=== PATIENT | female | born 1955 | race African-American/Black ===

== ENCOUNTER 2016-09-21 06:01 | Inpatient (IN) | payer MEDICAID, OTHER ==
[~2016-09-21] VITALS: Ht 147.3 cm; Wt 61.1 kg
[2016-09-21] MEDS: DiphenhydrAMINE HCL 50 MG/ML VIAL IM ONE ×2 (06:32→10:01)
[2016-09-21] MEDS: LORazepam 2 MG/ML VIAL IM ONE ×2 (06:32→10:01)
[2016-09-21] MEDS: HALOPERIDOL LACTATE 5 MG/ML VIAL IM ONE ×2 (06:32→10:01)
[2016-09-21 06:42] LABS: BASOPHILS % (AUTO) 0.6 % (0.0-2.0); EOSINOPHILS % (AUTO) 2.9 % (1.0-6.0); HEMATOCRIT 39.7 % (36-46); HEMOGLOBIN 12.4 g/dL (12.0-16.0); LYMPHOCYTES # (AUTO) 4.2 K/uL (1.0-4.8); LYMPHOCYTES % (AUTO) 31.5 % (22.0-44.0); MEAN CORPUSCULAR HEMOGLOBIN 28.6 pg (26.0-34.0); MEAN CORPUSCULAR HGB CONC 31.2 G/dL (31.0-37.0); MEAN CORPUSCULAR VOLUME 92 fL (80-100); MONOCYTES # (AUTO) 0.8 K/uL (0.1-1.0); MONOCYTES % (AUTO) 6.1 % (2.0-9.0); NEUTROPHILS # (AUTO) 7.9 K/uL (1.8-7.7); NEUTROPHILS % (AUTO) 58.9 % (40.0-70.0); PLATELET COUNT (AUTO) 337 K/uL (150-450); RED BLOOD CELL COUNT(AUTO) 4.34 MIL/uL (4.00-5.20); RED CELL DISTRIBUTION WIDTH 14.6 % (11.5-14.5); WHITE BLOOD COUNT (AUTO) 13.4 K/uL (4.5-11.0)
[2016-09-21 06:46] LABS: ANION GAP 11 mmol/L (8-16); CALCIUM, TOTAL 9.8 mg/dL (8.8-10.5); CARBON DIOXIDE 25 mmol/L (22-29); CHLORIDE 103 mmol/L (98-107); CREATININE 1.49 mg/dL (0.60-1.30); GLOMERULAR FILTR. RATE CALC 35 mL/min (>60); POTASSIUM 4.3 mmol/L (3.5-5.1); SODIUM SERUM 139 mmol/L (136-145); UREA NITROGEN, BLOOD 22 mg/dL (7-18)
[2016-09-21 06:52] LABS: ALANINE AMINOTRANSFERASE 19 U/L (12-78); ALBUMIN 3.9 g/dL (3.4-5.0); ASPARTATE AMINOTRANSFERASE 19 U/L (15-37); BILIRUBIN,TOTAL 0.1 mg/dL (0.1-1.0); TOTAL PROTEIN, SERUM 8.7 g/dL (6.4-8.2)
[2016-09-21] MEDS ORDERED: ZOLPIDEM TARTRATE 10 MG TABLET PO PRN (08:00)
[2016-09-21] MEDS ORDERED: LORazepam 2 MG TABLET PO PRN (08:00)
[2016-09-21] MEDS ORDERED: HALOPERIDOL 5 MG TABLET PO PRN (08:00)
[2016-09-21 10:31] LABS: GLUCOSE, URINE (UA) NEGATIVE (NEGATIVE); KETONES,URINE NEGATIVE (NEGATIVE); LEUKOCYTE ESTERASE ,URINE NEGATIVE (NEGATIVE); OCCULT BLOOD,URINE NEGATIVE (NEGATIVE); PROTEIN,URINE NEGATIVE (NEGATIVE)
[2016-09-21 10:36] LABS: ADD UA MICROSCOPIC NO; APPEARANCE,URINE CLEAR (CLEAR)
[2016-09-21 17:35] VITALS: BP 136/77
[2016-09-21] MEDS ORDERED: INFLUENZA VIRUS VACCINE QVS 2016-17 (3YR+)/PF 60 MCG/0.5 ML SYRINGE IM ONE (18:15)
[2016-09-22 04:00] VITALS: BP 138/85
[2016-09-22 08:17] VITALS: BP 139/73
[2016-09-22] MEDS: GABAPENTIN 300 MG CAPSULE PO SCH ×2 (16:47→20:34)
[2016-09-22] MEDS: TOPIRAMATE 25 MG TABLET PO SCH (17:00)
[2016-09-22] MEDS ORDERED: IBUPROFEN 400 MG TABLET PO PRN (17:00)
[2016-09-22] MEDS ORDERED: ACETAMINOPHEN 325 MG TABLET PO PRN (17:00)
[2016-09-22 19:44] VITALS: BP 137/82
[2016-09-22] MEDS: TraZODone HCL 100 MG TABLET PO SCH (20:34)
[2016-09-23 08:00] VITALS: BP 123/67
[2016-09-23] MEDS: VENLAFAXINE HCL 75 MG ER CAPSULE PO SCH (09:23)
[2016-09-23] MEDS: GABAPENTIN 300 MG CAPSULE PO SCH ×4 (09:24→20:40)
[2016-09-23] MEDS: TOPIRAMATE 25 MG TABLET PO SCH ×2 (09:24→16:52)
[2016-09-23 17:39] VITALS: BP 98/65
[2016-09-23] MEDS: TraZODone HCL 100 MG TABLET PO SCH (20:40)
[2016-09-24 08:00] VITALS: BP 145/70
[2016-09-24] MEDS: TOPIRAMATE 25 MG TABLET PO SCH ×2 (08:36→16:45)
[2016-09-24] MEDS: VENLAFAXINE HCL 75 MG ER CAPSULE PO SCH (08:36)
[2016-09-24] MEDS: GABAPENTIN 300 MG CAPSULE PO SCH ×4 (08:36→20:51)
[2016-09-24 16:47] VITALS: BP 142/68
[2016-09-24] MEDS: TraZODone HCL 100 MG TABLET PO SCH (20:51)
[2016-09-25 08:00] VITALS: BP 136/67
[2016-09-25] MEDS: GABAPENTIN 300 MG CAPSULE PO SCH ×4 (08:21→20:05)
[2016-09-25] MEDS: VENLAFAXINE HCL 75 MG ER CAPSULE PO SCH (08:21)
[2016-09-25] MEDS: TOPIRAMATE 25 MG TABLET PO SCH ×2 (08:21→16:17)
[2016-09-25 19:03] VITALS: BP 132/74
[2016-09-25] MEDS: TraZODone HCL 100 MG TABLET PO SCH (20:04)
[2016-09-26 01:15] VITALS: BP 143/73
[2016-09-26 08:07] VITALS: BP 134/84
[2016-09-26] MEDS: VENLAFAXINE HCL 75 MG ER CAPSULE PO SCH (08:25)
[2016-09-26] MEDS: GABAPENTIN 300 MG CAPSULE PO SCH ×4 (08:25→20:59)
[2016-09-26] MEDS: TOPIRAMATE 25 MG TABLET PO SCH ×2 (08:26→17:01)
[2016-09-26 16:07] VITALS: BP 117/66
[2016-09-26] MEDS: TraZODone HCL 100 MG TABLET PO SCH ×2 (20:59→21:00)
[2016-09-27 05:01] VITALS: BP 126/77
[2016-09-27 08:00] VITALS: BP 142/77
[2016-09-27] MEDS: GABAPENTIN 300 MG CAPSULE PO SCH ×2 (08:03→12:14)
[2016-09-27] MEDS: TOPIRAMATE 25 MG TABLET PO SCH (08:03)
[2016-09-27] MEDS: VENLAFAXINE HCL 75 MG ER CAPSULE PO SCH (08:03)
[2016-09-27] MEDS ORDERED: TOPI25 PO (12:48)
[2016-09-27] MEDS ORDERED: TRAZ-147 PO (12:48)
[2016-09-27] MEDS ORDERED: GABA-531 PO (12:48)
[2016-09-27] MEDS ORDERED: VENL-67 PO (12:49)
== END 2016-09-27 14:50 | disposition home or self-care (01) | DRG 750 ==
LOC: EMS 06:03 → EEVIPCON 06:03 → 3EI 16:44
PROVIDERS: ADMIT Psychiatry & Neurology Psychiatry; ATTEND Psychiatry & Neurology Psychiatry
DX: F25.9 Schizoaffective disorder, unspecified (principal); N18.3 Chronic kidney disease, stage 3 (moderate); F29 Unspecified psychosis not due to a substance or known physiological condition; D72.829 Elevated white blood cell count, unspecified; F17.210 Nicotine dependence, cigarettes, uncomplicated; Z91.19 Patient's noncompliance with other medical treatment and regimen; Z88.1 Allergy status to other antibiotic agents; Z88.0 Allergy status to penicillin; Z88.8 Allergy status to other drugs, medicaments and biological substances; Z79.899 Other long term (current) drug therapy; Z28.21 Immunization not carried out because of patient refusal
CPT/HCPCS: 96372; 99285; 99406; G0480; J1200; J1630; J2060

== ENCOUNTER 2016-10-10 15:48 | Inpatient (IN) | payer MEDICAID, OTHER ==
[~2016-10-10] VITALS: Ht 148.6 cm; Wt 59.0 kg
[~2016-10-10 15:48] MED LIST: GABA-531 PO; TOPI25 PO; TRAZ-147 PO; VENL-67 PO
[2016-10-10] MEDS ORDERED: LORazepam 2 MG TABLET PO PRN (16:45)
[2016-10-10] MEDS ORDERED: ZOLPIDEM TARTRATE 10 MG TABLET PO PRN (16:45)
[2016-10-10 17:17] LABS: BASOPHILS % (AUTO) 1.5 % (0.0-2.0); EOSINOPHILS % (AUTO) 3.4 % (1.0-6.0); HEMATOCRIT 42.4 % (36-46); HEMOGLOBIN 13.3 g/dL (12.0-16.0); LYMPHOCYTES % (AUTO) 34.2 % (22.0-44.0); MEAN CORPUSCULAR HEMOGLOBIN 28.1 pg (26.0-34.0); MEAN CORPUSCULAR HGB CONC 31.3 G/dL (31.0-37.0); MEAN CORPUSCULAR VOLUME 90 fL (80-100); MONOCYTES # (AUTO) 0.6 K/uL (0.1-1.0); MONOCYTES % (AUTO) 5.4 % (2.0-9.0); NEUTROPHILS # (AUTO) 6.5 K/uL (1.8-7.7); NEUTROPHILS % (AUTO) 55.5 % (40.0-70.0); PLATELET COUNT (AUTO) 331 K/uL (150-450); RED BLOOD CELL COUNT(AUTO) 4.72 MIL/uL (4.00-5.20); RED CELL DISTRIBUTION WIDTH 14.6 % (11.5-14.5); WHITE BLOOD COUNT (AUTO) 11.8 K/uL (4.5-11.0)
[2016-10-10 17:25] LABS: ANION GAP 14 mmol/L (8-16); CALCIUM, TOTAL 10.2 mg/dL (8.8-10.5); CARBON DIOXIDE 22 mmol/L (22-29); CHLORIDE 106 mmol/L (98-107); CREATININE 1.62 mg/dL (0.60-1.30); GLOMERULAR FILTR. RATE CALC 39 mL/min (>60); SODIUM SERUM 142 mmol/L (136-145); UREA NITROGEN, BLOOD 19 mg/dL (7-18)
[2016-10-10 17:32] LABS: ALANINE AMINOTRANSFERASE 16 U/L (12-78); ALBUMIN 3.9 g/dL (3.4-5.0); ASPARTATE AMINOTRANSFERASE 18 U/L (15-37); BILIRUBIN,TOTAL 0.3 mg/dL (0.1-1.0); TOTAL PROTEIN, SERUM 8.8 g/dL (6.4-8.2)
[2016-10-10] MEDS: HALOPERIDOL 5 MG TABLET PO PRN (18:28)
[2016-10-10 18:42] VITALS: BP 128/78
[2016-10-11 08:00] VITALS: BP 139/74
[2016-10-11] MEDS: HALOPERIDOL 5 MG TABLET PO PRN (17:39)
[2016-10-11] MEDS: TOPIRAMATE 25 MG TABLET PO SCH (17:50)
[2016-10-11] MEDS: GABAPENTIN 300 MG CAPSULE PO SCH ×2 (17:50→20:37)
[2016-10-11] MEDS: TraZODone HCL 100 MG TABLET PO SCH (20:36)
[2016-10-11] MEDS ORDERED: IBUPROFEN 400 MG TABLET PO PRN (22:00)
[2016-10-11] MEDS ORDERED: ACETAMINOPHEN 325 MG TABLET PO PRN (22:00)
[2016-10-11 22:24] VITALS: BP 130/77
[2016-10-12 08:30] VITALS: BP 123/77
[2016-10-12 08:36] LABS: ALBUMIN 3.7 g/dL (3.4-5.0); BILIRUBIN,TOTAL 0.3 mg/dL (0.1-1.0); CALCIUM, TOTAL 9.5 mg/dL (8.8-10.5); CHOL/HDL RATIO 3.4 (3.9-5.7); CREATININE 1.4 mg/dL (0.60-1.30); POTASSIUM 3.9 mmol/L (3.5-5.1); THYROID STIMULATING HORMONE 0.87 uIU/mL (0.36-3.74); TOTAL PROTEIN, SERUM 8.2 g/dL (6.4-8.2)
[2016-10-12 08:37] LABS: HEMOGLOBIN A1C 6.3 % (4.5-6.2)
[2016-10-12 09:27] LABS: BASOPHILS % (AUTO) 0.6 % (0.0-2.0); EOSINOPHILS % (AUTO) 3.6 % (1.0-6.0); HEMATOCRIT 39.6 % (36-46); HEMOGLOBIN 12.3 g/dL (12.0-16.0); LYMPHOCYTES % (AUTO) 31.6 % (22.0-44.0); MEAN CORPUSCULAR HEMOGLOBIN 28.1 pg (26.0-34.0); MEAN CORPUSCULAR HGB CONC 31.2 G/dL (31.0-37.0); MEAN CORPUSCULAR VOLUME 90 fL (80-100); MONOCYTES # (AUTO) 0.5 K/uL (0.1-1.0); NEUTROPHILS # (AUTO) 5.7 K/uL (1.8-7.7); NEUTROPHILS % (AUTO) 59.2 % (40.0-70.0); PLATELET COUNT (AUTO) 310 K/uL (150-450); RED BLOOD CELL COUNT(AUTO) 4.39 MIL/uL (4.00-5.20); RED CELL DISTRIBUTION WIDTH 14.4 % (11.5-14.5); WHITE BLOOD COUNT (AUTO) 9.6 K/uL (4.5-11.0)
[2016-10-12] MEDS: TOPIRAMATE 25 MG TABLET PO SCH ×2 (09:39→17:58)
[2016-10-12] MEDS: VENLAFAXINE HCL 75 MG ER CAPSULE PO SCH (09:40)
[2016-10-12] MEDS: GABAPENTIN 300 MG CAPSULE PO SCH ×4 (09:40→20:10)
[2016-10-12 16:29] VITALS: BP 146/73
[2016-10-12] MEDS: TraZODone HCL 100 MG TABLET PO SCH (20:11)
[2016-10-13 01:00] VITALS: BP 137/69
[2016-10-13 08:05] VITALS: BP 137/74
[2016-10-13] MEDS: TOPIRAMATE 25 MG TABLET PO SCH ×2 (09:00→16:56)
[2016-10-13] MEDS: VENLAFAXINE HCL 75 MG ER CAPSULE PO SCH (09:00)
[2016-10-13] MEDS: GABAPENTIN 300 MG CAPSULE PO SCH ×4 (09:00→20:00)
[2016-10-13 17:58] VITALS: BP 136/73
[2016-10-13] MEDS: TraZODone HCL 100 MG TABLET PO SCH (20:00)
[2016-10-14 06:14] VITALS: BP 140/72
[2016-10-14 08:04] VITALS: BP 147/69
[2016-10-14] MEDS: VENLAFAXINE HCL 75 MG ER CAPSULE PO SCH (10:32)
[2016-10-14] MEDS: TOPIRAMATE 25 MG TABLET PO SCH ×2 (10:32→17:00)
[2016-10-14] MEDS: GABAPENTIN 300 MG CAPSULE PO SCH ×5 (10:32→20:50)
[2016-10-14 17:10] VITALS: BP 153/80
[2016-10-14] MEDS: TraZODone HCL 100 MG TABLET PO SCH (20:46)
[2016-10-15] MEDS: VENLAFAXINE HCL 75 MG ER CAPSULE PO SCH (09:00)
[2016-10-15] MEDS: TOPIRAMATE 25 MG TABLET PO SCH ×2 (09:00→17:01)
[2016-10-15] MEDS: GABAPENTIN 300 MG CAPSULE PO SCH ×4 (09:00→21:08)
[2016-10-15] MEDS: RisperiDONE 1 MG TABLET PO SCH ×2 (10:26→17:01)
[2016-10-15] MEDS ORDERED: DiphenhydrAMINE HCL 50 MG/ML VIAL IM ONE (10:30)
[2016-10-15] MEDS ORDERED: HALOPERIDOL LACTATE 5 MG/ML VIAL IM ONE (10:30)
[2016-10-15] MEDS ORDERED: LORazepam 2 MG/ML VIAL IM ONE (10:30)
[2016-10-15] MEDS: TraZODone HCL 100 MG TABLET PO SCH (21:08)
[2016-10-15 22:26] VITALS: BP 143/79
[2016-10-16 08:00] VITALS: BP 98/63
[2016-10-16] MEDS: VENLAFAXINE HCL 75 MG ER CAPSULE PO SCH (09:00)
[2016-10-16] MEDS: GABAPENTIN 300 MG CAPSULE PO SCH ×4 (09:00→20:14)
[2016-10-16] MEDS: RisperiDONE 1 MG TABLET PO SCH ×2 (09:00→17:00)
[2016-10-16] MEDS: TOPIRAMATE 25 MG TABLET PO SCH ×2 (09:00→17:00)
[2016-10-16] MEDS: TraZODone HCL 100 MG TABLET PO SCH (20:14)
[2016-10-16 21:10] VITALS: BP 111/75
[2016-10-17 01:53] VITALS: BP 140/68
[2016-10-17 08:05] VITALS: BP 105/50
[2016-10-17] MEDS: VENLAFAXINE HCL 75 MG ER CAPSULE PO SCH (09:00)
[2016-10-17] MEDS: RisperiDONE 1 MG TABLET PO SCH (09:00)
[2016-10-17] MEDS: TOPIRAMATE 25 MG TABLET PO SCH (09:00)
[2016-10-17] MEDS: GABAPENTIN 300 MG CAPSULE PO SCH (09:00)
[2016-10-17] MEDS ORDERED: RISP1 PO (11:05)
== END 2016-10-17 13:20 | disposition home or self-care (01) | DRG 750 ==
LOC: EMS 15:53 → 3EI 17:49
PROVIDERS: ADMIT Psychiatry & Neurology Psychiatry; ATTEND Psychiatry & Neurology Psychiatry
DX: F20.0 Paranoid schizophrenia (principal); N18.3 Chronic kidney disease, stage 3 (moderate); Z91.19 Patient's noncompliance with other medical treatment and regimen; F32.9 Major depressive disorder, single episode, unspecified; F17.210 Nicotine dependence, cigarettes, uncomplicated; F12.10 Cannabis abuse, uncomplicated; F99 Mental disorder, not otherwise specified; Z88.1 Allergy status to other antibiotic agents; Z88.0 Allergy status to penicillin; Z81.8 Family history of other mental and behavioral disorders; Z91.048 Other nonmedicinal substance allergy status; Z79.899 Other long term (current) drug therapy
CPT/HCPCS: 83036; 84443; 87081; 99285; G0480; J1200; J1630; J2060

== ENCOUNTER 2016-11-02 06:28 | Inpatient (IN) | payer MEDICAID, OTHER ==
[~2016-11-02] VITALS: Ht 147.3 cm; Wt 57.8 kg
[~2016-11-02 06:28] MED LIST changes: +RISP1 PO
[2016-11-02 07:29] LABS: BASOPHILS % (AUTO) 0.5 % (0.0-2.0); EOSINOPHILS % (AUTO) 3.8 % (1.0-6.0); HEMATOCRIT 40.5 % (36-46); HEMOGLOBIN 12.9 g/dL (12.0-16.0); LYMPHOCYTES # (AUTO) 2.7 K/uL (1.0-4.8); LYMPHOCYTES % (AUTO) 27.5 % (22.0-44.0); MEAN CORPUSCULAR HEMOGLOBIN 28.2 pg (26.0-34.0); MEAN CORPUSCULAR HGB CONC 31.8 G/dL (31.0-37.0); MEAN CORPUSCULAR VOLUME 89 fL (80-100); MONOCYTES # (AUTO) 0.6 K/uL (0.1-1.0); MONOCYTES % (AUTO) 6.2 % (2.0-9.0); PLATELET COUNT (AUTO) 324 K/uL (150-450); RED BLOOD CELL COUNT(AUTO) 4.57 MIL/uL (4.00-5.20); RED CELL DISTRIBUTION WIDTH 14.7 % (11.5-14.5); WHITE BLOOD COUNT (AUTO) 9.8 K/uL (4.5-11.0)
[2016-11-02 07:42] LABS: ANION GAP 12 mmol/L (8-16); CALCIUM, TOTAL 9.8 mg/dL (8.8-10.5); CARBON DIOXIDE 24 mmol/L (22-29); CHLORIDE 106 mmol/L (98-107); CREATININE 1.06 mg/dL (0.60-1.30); GLOMERULAR FILTR. RATE CALC > 60 mL/min (>60); POTASSIUM 3.7 mmol/L (3.5-5.1); SODIUM SERUM 142 mmol/L (136-145); UREA NITROGEN, BLOOD 11 mg/dL (7-18)
[2016-11-02 07:46] LABS: ALANINE AMINOTRANSFERASE 16 U/L (12-78); ALBUMIN 3.7 g/dL (3.4-5.0); ASPARTATE AMINOTRANSFERASE 15 U/L (15-37); BILIRUBIN,TOTAL 0.3 mg/dL (0.1-1.0); TOTAL PROTEIN, SERUM 8.5 g/dL (6.4-8.2)
[2016-11-02] MEDS ORDERED: HALOPERIDOL 5 MG TABLET PO PRN (08:45)
[2016-11-02] MEDS ORDERED: ZOLPIDEM TARTRATE 10 MG TABLET PO PRN (08:45)
[2016-11-02] MEDS ORDERED: LORazepam 2 MG TABLET PO PRN (08:45)
[2016-11-02] MEDS ORDERED: INFLUENZA VIRUS VACCINE QVS 2016-17 (3YR+)/PF 60 MCG/0.5 ML SYRINGE IM ONE (15:30)
[2016-11-02 16:00] VITALS: BP 138/68
[2016-11-03] MEDS ORDERED: IBUPROFEN 400 MG TABLET PO PRN (12:15)
[2016-11-03] MEDS: GABAPENTIN 300 MG CAPSULE PO SCH ×3 (13:04→20:10)
[2016-11-03] MEDS: RisperiDONE 1 MG TABLET PO SCH (16:09)
[2016-11-03] MEDS: TraZODone HCL 100 MG TABLET PO SCH (20:10)
[2016-11-04 00:10] VITALS: BP 130/78
[2016-11-04] MEDS: VENLAFAXINE HCL 75 MG ER CAPSULE PO SCH (08:04)
[2016-11-04] MEDS: GABAPENTIN 300 MG CAPSULE PO SCH ×4 (08:05→21:00)
[2016-11-04] MEDS: RisperiDONE 1 MG TABLET PO SCH ×2 (08:05→17:00)
[2016-11-04 08:35] VITALS: BP 144/72
[2016-11-04 16:05] VITALS: BP 142/75
[2016-11-04] MEDS ORDERED: LORazepam 2 MG/ML VIAL ONE (16:11)
[2016-11-04] MEDS ORDERED: DiphenhydrAMINE HCL 50 MG/ML VIAL ONE (16:11)
[2016-11-04] MEDS ORDERED: HALOPERIDOL LACTATE 5 MG/ML VIAL ONE (16:11)
[2016-11-04] MEDS ORDERED: HALOPERIDOL LACTATE 5 MG/ML VIAL IM ONE ×2 (16:15→16:50)
[2016-11-04] MEDS ORDERED: LORazepam 2 MG/ML VIAL IM ONE (16:15)
[2016-11-04] MEDS ORDERED: DiphenhydrAMINE HCL 50 MG/ML VIAL IM ONE (16:15)
[2016-11-04] MEDS: TraZODone HCL 100 MG TABLET PO SCH (21:00)
[2016-11-05 08:07] VITALS: BP 132/68
[2016-11-05] MEDS: GABAPENTIN 300 MG CAPSULE PO SCH ×4 (08:43→20:22)
[2016-11-05] MEDS: RisperiDONE 1 MG TABLET PO SCH ×2 (08:44→17:00)
[2016-11-05] MEDS: VENLAFAXINE HCL 75 MG ER CAPSULE PO SCH (08:44)
[2016-11-05] MEDS: BENZTROPINE MESYLATE 1 MG TABLET PO SCH ×2 (08:44→17:00)
[2016-11-05 16:05] VITALS: BP 145/70
[2016-11-05] MEDS: TraZODone HCL 100 MG TABLET PO SCH (20:08)
[2016-11-05 20:30] VITALS: BP 143/84
[2016-11-06] MEDS: GABAPENTIN 300 MG CAPSULE PO SCH ×4 (08:13→20:42)
[2016-11-06] MEDS: BENZTROPINE MESYLATE 1 MG TABLET PO SCH ×2 (08:13→16:03)
[2016-11-06] MEDS: VENLAFAXINE HCL 75 MG ER CAPSULE PO SCH (08:13)
[2016-11-06] MEDS: RisperiDONE 1 MG TABLET PO SCH ×2 (08:14→16:03)
[2016-11-06 08:40] VITALS: BP 135/65
[2016-11-06] MEDS: ACETAMINOPHEN 325 MG TABLET PO PRN ×2 (09:14→17:19)
[2016-11-06 12:21] LABS: GLUCOSE,POINT OF CARE 102 MG/DL (70-110)
[2016-11-06 16:06] VITALS: BP 133/77
[2016-11-06 17:16] VITALS: BP 135/79
[2016-11-06] MEDS: TraZODone HCL 100 MG TABLET PO SCH (20:42)
[2016-11-07 01:53] VITALS: BP 134/68
[2016-11-07] MEDS: ACETAMINOPHEN 325 MG TABLET PO PRN (05:56)
[2016-11-07] MEDS: VENLAFAXINE HCL 75 MG ER CAPSULE PO SCH (08:20)
[2016-11-07] MEDS: BENZTROPINE MESYLATE 1 MG TABLET PO SCH ×2 (08:21→16:13)
[2016-11-07] MEDS: GABAPENTIN 300 MG CAPSULE PO SCH ×4 (08:21→20:29)
[2016-11-07] MEDS: RisperiDONE 1 MG TABLET PO SCH ×2 (08:21→16:13)
[2016-11-07 08:28] VITALS: BP 121/68
[2016-11-07 12:18] LABS: GLUCOSE,POINT OF CARE 131 MG/DL (70-110)
[2016-11-07 16:07] VITALS: BP 120/65
[2016-11-07 16:52] LABS: GLUCOSE,POINT OF CARE 102 MG/DL (70-110)
[2016-11-07] MEDS: TraZODone HCL 100 MG TABLET PO SCH (20:33)
[2016-11-08] MEDS: ACETAMINOPHEN 325 MG TABLET PO PRN ×2 (03:56→15:05)
[2016-11-08 08:28] VITALS: BP 137/76
[2016-11-08] MEDS: VENLAFAXINE HCL 75 MG ER CAPSULE PO SCH (08:30)
[2016-11-08] MEDS: GABAPENTIN 300 MG CAPSULE PO SCH ×5 (08:30→20:14)
[2016-11-08] MEDS: BENZTROPINE MESYLATE 1 MG TABLET PO SCH ×3 (08:30→16:00)
[2016-11-08] MEDS: RisperiDONE 1 MG TABLET PO SCH ×3 (08:30→16:00)
[2016-11-08 11:47] LABS: GLUCOSE,POINT OF CARE 142 MG/DL (70-110)
[2016-11-08 16:00] VITALS: BP 124/66
[2016-11-08 16:05] VITALS: BP 130/67
[2016-11-08] MEDS: TraZODone HCL 100 MG TABLET PO SCH (20:17)
[2016-11-09 05:53] VITALS: BP 136/67
[2016-11-09 06:32] LABS: GLUCOSE,POINT OF CARE 136 MG/DL (70-110)
[2016-11-09] MEDS: BENZTROPINE MESYLATE 1 MG TABLET PO SCH ×2 (08:14→16:31)
[2016-11-09] MEDS: RisperiDONE 1 MG TABLET PO SCH ×2 (08:15→16:31)
[2016-11-09] MEDS: VENLAFAXINE HCL 75 MG ER CAPSULE PO SCH (08:15)
[2016-11-09] MEDS: GABAPENTIN 300 MG CAPSULE PO SCH ×4 (08:15→20:34)
[2016-11-09 08:26] VITALS: BP 151/73
[2016-11-09 11:56] LABS: GLUCOSE,POINT OF CARE 116 MG/DL (70-110)
[2016-11-09 16:00] VITALS: BP 158/76
[2016-11-09] MEDS: TraZODone HCL 100 MG TABLET PO SCH (20:34)
[2016-11-10 06:17] LABS: GLUCOSE,POINT OF CARE 129 MG/DL (70-110)
[2016-11-10 06:47] VITALS: BP 145/78
[2016-11-10] MEDS: RisperiDONE 1 MG TABLET PO SCH (08:15)
[2016-11-10] MEDS: VENLAFAXINE HCL 75 MG ER CAPSULE PO SCH (08:15)
[2016-11-10] MEDS: BENZTROPINE MESYLATE 1 MG TABLET PO SCH (08:15)
[2016-11-10] MEDS: GABAPENTIN 300 MG CAPSULE PO SCH (08:15)
[2016-11-10 08:39] VITALS: BP 152/61
== END 2016-11-10 10:45 | disposition home or self-care (01) | DRG 750 ==
LOC: EMS 06:30 → B2S 12:57 → B3A 18:55
PROVIDERS: ADMIT Psychiatry & Neurology Psychiatry; ATTEND Psychiatry & Neurology Psychiatry
DX: F25.0 Schizoaffective disorder, bipolar type (principal); R45.851 Suicidal ideations; Z91.14 Patient's other noncompliance with medication regimen; F20.9 Schizophrenia, unspecified; R73.03 Prediabetes; F19.10 Other psychoactive substance abuse, uncomplicated; F17.210 Nicotine dependence, cigarettes, uncomplicated; F12.90 Cannabis use, unspecified, uncomplicated; Z71.51 Drug abuse counseling and surveillance of drug abuser; Z28.21 Immunization not carried out because of patient refusal; Z88.0 Allergy status to penicillin; Z88.1 Allergy status to other antibiotic agents; Z91.011 Allergy to milk products; Z88.8 Allergy status to other drugs, medicaments and biological substances; Z91.018 Allergy to other foods; Z79.899 Other long term (current) drug therapy; Z71.6 Tobacco abuse counseling
CPT/HCPCS: 82962; 99285; G0480; J1200; J1630; J2060